=== PATIENT | female | born 1940 | race Caucasian/White ===

== ENCOUNTER → 2018-10-11 | Outpatient (CLI) | payer OTHER ==
[~2018-10-11] MED LIST: AMLODIPINE BESY10 MG PO; BENAZEPRIL20 MG PO; CALCIUM 600 +1 EAC5 PO; CO Q10100 MG PO; CRANBERRY500 M1 PO; FISH OIL 1,2001 EACH PO; FOSAMAX70 M1 PO; LEVOTHYROXIN0.075 MG PO; MULTIPLE VITAMI1 T25 PO; SIMVASTATIN20 MG PO; VITAMIN C500 M4 PO
== END | disposition home or self-care (01) ==
LOC: MAMMO 13:34
DX: Z12.31 Encounter for screening mammogram for malignant neoplasm of breast (principal)

== ENCOUNTER → 2020-10-20 | Outpatient (CLI) | payer OTHER | END | disposition home or self-care (01) | LOC: RAD 08:29 | PROVIDERS: ATTEND Nurse Practitioner Primary Care | DX: M81.0 Age-related osteoporosis without current pathological fracture (principal); M85.89 Other specified disorders of bone density and structure, multiple sites; Z78.0 Asymptomatic menopausal state ==

== ENCOUNTER → 2023-01-27 | Outpatient (CLI) | payer OTHER | END | disposition home or self-care (01) | LOC: RAD 09:09 | PROVIDERS: ATTEND Internal Medicine | DX: M81.0 Age-related osteoporosis without current pathological fracture (principal) ==

== ENCOUNTER 2024-01-22 22:03 | Emergency (ER) | payer OTHER ==
[~2024-01-22] VITALS: Ht 162.5 cm; Wt 63.2 kg
[~2024-01-22 22:03] MED LIST changes: +DONEPEZIL HCL10 MG PO; +MACROBID100 M1 PO; +ZINC50 M4 PO
== END 2024-01-23 01:27 ==
LOC: ED 22:03
DX: M25.512 Pain in left shoulder (principal); I10 Essential (primary) hypertension; Z88.8 Allergy status to other drugs, medicaments and biological substances; Z98.890 Other specified postprocedural states; W19.XXXA Unspecified fall, initial encounter